=== PATIENT | male | born 1960 | race American Indian/Alaskan Native ===

== ENCOUNTER 2020-08-24 11:18 | Emergency (ER) | payer SELFPAY ==
[2020-08-24] MEDS ORDERED: ASPIRIN 325 MG TAB PO ONE (11:40)
[2020-08-24 13:02] LABS: Basophils # (Auto) 0.1 K/mm3 (0.0-0.1); Basophils % (Auto) 1.2 % (0.0-1.8); Eosinophils # (Auto) 0.2 K/mm3 (0.0-0.4); Eosinophils % (Auto) 3.2 % (0.0-4.3); Hematocrit 40.3 % (35.5-45.6); Hemoglobin 13.4 gm/dl (11.8-15.2); Lymphocytes # (Auto) 2.5 K/mm3 (1.2-5.4); Mean Corpuscular HGB Conc 33 % (32-34); Mean Corpuscular Volume 93 fl (84-94); Monocytes # (Auto) 0.3 K/mm3 (0.0-0.8); Monocytes % (Auto) 6.4 % (0.0-7.3); Platelet Count 235 K/mm3 (140-440); Red Blood Count 4.32 M/mm3 (3.65-5.03); Red Cell Distribution Width 13.4 % (13.2-15.2)
[2020-08-24 13:18] LABS: BUN/Creatinine Ratio 14; Blood Urea Nitrogen 18 mg/dL (9-20); Calcium 8.9 mg/dL (8.4-10.2); Hemolysis Index 12
--- NOTE | 2020-08-24 13:30 | XRay Report ---
CHEST PA AND LATERAL VIEWS INDICATION: Chest Pain. COMPARISON: None. FINDINGS: Support devices: None. Heart: Within normal limits. Lungs/Pleura: No acute pulmonary or pleural findings. IMPRESSION: 1. No acute findings. Signer Name: Brendan Bowling MD Signed: 08/24/2020 1:25 PM Workstation Name: [id number]
[2020-08-24] MEDS ORDERED: ASPIRIN 325 MG TAB ONE (15:48)
--- NOTE | 2020-08-24 16:44 | Emergency Department Report ---
HPI - General Chief Complaint: Chest Pain PUI?: No Time Seen by Provider: 08/24/20 16:15 - HPI HPI: Room 6 The patient is a 59-year-old male present with a chief complaint of chest pain. The patient states symptom began last night while at rest he states he developed a "hurt" pain in his left chest that was constant. The patient states the pain was still present this morning when he awakened and his spouse urged him to come to the emergency department. Patient denies shortness of breath, nausea/vomiting or diaphoresis with this pain. Patient denies pleurisy or cough. Patient states he had a normal cardiac catheterization in 2014. Patient currently denies chest pain and states he feels good ED Past Medical Hx - Past Medical History Previous Medical History?: Yes Hx Hypertension: Yes Hx Pulmonary Embolism: Yes (2009, February 2020) - Surgical History Past Surgical History?: No - Family History Family history: no significant - Social History Smoking Status: Current Some Day Smoker (Cigar) Substance Use Type: None (Denies illicit drug use), Alcohol (Occasional) ED Review of Systems ROS: Stated complaint: CHEST PAIN, KIDNEY PAIN Other details as noted in HPI Constitutional: denies: diaphoresis Respiratory: denies: shortness of breath Cardiovascular: chest pain Endocrine: no symptoms reported Gastrointestinal: denies: nausea, vomiting Physical Exam - Physical Exam Vital Signs: Vital Signs 08/24/20 08/24/20 08/24/20 11:40 15:46 16:00 Temperature 98.4 F Pulse Rate 55 L 42 L 46 L Respiratory 18 13 17 Rate Blood Pressure 158/98 161/93 Blood Pressure 161/97 [Right] O2 Sat by Pulse 97 98 99 Oximetry 08/24/20 16:30 Temperature Pulse Rate Respiratory Rate Blood Pressure 158/96 Blood Pressure [Right] O2 Sat by Pulse 100 Oximetry Physical Exam: GENERAL: The patient is well-developed well-nourished male lying on stretcher not appearing to be in acute distress. [] HEENT: Normocephalic. Atraumatic. Extraocular motions are intact. Patient has moist mucous membranes. NECK: Supple. Trachea midline CHEST/LUNGS: Clear to auscultation. There is no respiratory distress noted. HEART/CARDIOVASCULAR: Regular. There is no tachycardia. There is no gallop rub or murmur. ABDOMEN: Abdomen is soft, nontender. Patient has normal bowel sounds. There is no abdominal distention. SKIN: There is no rash. There is no edema. There is no diaphoresis. NEURO: The patient is awake, alert, and oriented. The patient is cooperative. The patient has normal speech MUSCULOSKELETAL: There is no evidence of acute injury. ED Course Vital Signs 08/24/20 08/24/20 08/24/20 11:40 15:46 16:00 Temperature 98.4 F Pulse Rate 55 L 42 L 46 L Respiratory 18 13 17 Rate Blood Pressure 158/98 161/93 Blood Pressure 161/97 [Right] O2 Sat by Pulse 97 98 99 Oximetry 08/24/20 16:30 Temperature Pulse Rate Respiratory Rate Blood Pressure 158/96 Blood Pressure [Right] O2 Sat by Pulse 100 Oximetry ED Medical Decision Making - Lab Data Result diagrams: 08/24/20 12:28 08/24/20 12:28 Laboratory Tests 08/24/20 08/24/20 08/24/20 12:28 12:28 15:30 WBC 5.1 RBC 4.32 Hgb 13.4 Hct 40.3 MCV 93 MCH 31 MCHC 33 RDW 13.4 Plt Count 235 Lymph % (Auto) 49.0 H [place] % (Auto) 6.4 Eos % (Auto) 3.2 Baso % (Auto) 1.2 Lymph # (Auto) 2.5 [place] # (Auto) 0.3 Eos # (Auto) 0.2 Baso # (Auto) 0.1 Seg Neutrophils % 40.2 Seg Neutrophils # 2.0 Sodium 140 Potassium 3.8 Chloride 104.3 Carbon Dioxide 28 Anion Gap 12 BUN 18 Creatinine 1.3 Estimated GFR 57 BUN/Creatinine Ratio 14 Glucose 86 Calcium 8.9 Troponin T < 0.010 < 0.010 08/24/20 17:14 WBC RBC Hgb Hct MCV MCH MCHC RDW Plt Count Lymph % (Auto) [place] % (Auto) Eos % (Auto) Baso % (Auto) Lymph # (Auto) [place] # (Auto) Eos # (Auto) Baso # (Auto) Seg Neutrophils % Seg Neutrophils # Sodium Potassium Chloride Carbon Dioxide Anion Gap BUN Creatinine Estimated GFR BUN/Creatinine Ratio Glucose Calcium Troponin T < 0.010 - EKG Data -: EKG Interpreted by Nm EKG shows normal: sinus rhythm Rate: bradycardia (50 bpm) - EKG Data When compared to previous EKG there are: previous EKG unavailable Interpretation: nonspecific ST-T wave zackary - Radiology Data Radiology results: report reviewed (Chest x-ray), image reviewed (Chest x-ray) interpreted by me: Chest x-ray-no focal infiltrates, no pneumothorax Findings [facility] [address] [place] [address] XRay Report Signed Patient: FLEX TORRES MR#: [id number] 8 : 1960 Acct:[id number] Age/Sex: 59 / M ADM Date: 08/24/20 Loc: ED Attending Dr: Ordering Physician: ED MD SUDHEER Date of Service: 08/24/20 Procedure(s): XR chest routine 2V Accession Number(s): [id number] cc: ED DOCMD Fluoro Time In Minutes: CHEST PA AND LATERAL VIEWS INDICATION: Chest Pain. COMPARISON: None. FINDINGS: Support devices: None. Heart: Within normal limits. Lungs/Pleura: No acute pulmonary or pleural findings. IMPRESSION: 1. No acute findings. Signer Name: Brendan Bowling MD Signed: 08/24/2020 1:25 PM Workstation Name: [id number] Transcribed By: NANCY Dictated By: Brendan Bowling MD Electronically Authenticated By: Brendan Bowling MD Signed Date/Time: 08/24/20 132 DD/ 1324 TD/TT: - Differential Diagnosis ACS, muscle strain, pericarditis, GERD Critical care attestation.: If time is entered above; I have spent that time in minutes in the direct care of this critically ill patient, excluding procedure time. ED Disposition Clinical Impression: Chest pain Disposition: DC-01 TO HOME OR SELFCARE Is pt being admited?: No Does the pt Need Aspirin: No Condition: Stable Instructions: Chest Pain (ED) Additional Instructions: You are to follow-up with [facility] for further evaluation. Return to the emergency department should you develop worsening symptoms, inability to tolerate food or liquids, high fever or any other rylie rns Referrals: PRIMARY CARE, [Primary Care Provider] - 3-5 Days Time of Disposition: 18:44 HEART Score - HEART Score History: Slightly suspicious EKG: Non-specific Age: 45-65 Risk factors: 1-2 risk factors Troponin: Troponin T < 0.010 ng/mL (0.00-0.029) 08/24/20 15:30 Troponin: < normal limit HEART Score: 3
[2020-08-24 18:34] VITALS: BP 165/108
== END 2020-08-24 19:02 | disposition home or self-care (01) ==
LOC: ED 11:18
DX: R07.89 Other chest pain (principal); I10 Essential (primary) hypertension; F17.200 Nicotine dependence, unspecified, uncomplicated
CPT/HCPCS: 36415; 71046; 80048; 84484; 85025; 93005

== ENCOUNTER 2020-09-28 08:10 | Emergency (ER) | payer SELFPAY ==
[2020-09-28] MEDS ORDERED: ASPIRIN 325 MG TAB PO ONE (08:27)
--- NOTE | 2020-09-28 09:06 | XRay Report ---
CHEST 1 VIEW INDICATION: Chest Pain. COMPARISON: 08/24/2020 FINDINGS: Support devices: None. Heart: Within normal limits. Lungs/Pleura: No acute air space or interstitial disease. Additional findings: None. IMPRESSION: No acute findings. Signer Name: Azeem Jhaveri Jr, MD Signed: 09/28/2020 9:01 AM Workstation Name: [id number]
[2020-09-28 09:10] LABS: Basophils # (Auto) 0.1 K/mm3 (0.0-0.1); Basophils % (Auto) 1.3 % (0.0-1.8); Eosinophils % (Auto) 0.2 % (0.0-4.3); Hematocrit 39.2 % (35.5-45.6); Hemoglobin 13.8 gm/dl (11.8-15.2); Lymphocytes # (Auto) 1.3 K/mm3 (1.2-5.4); Lymphocytes % (Auto) 25.6 % (13.4-35.0); Mean Corpuscular HGB Conc 35 % (32-34); Mean Corpuscular Volume 90 fl (84-94); Monocytes # (Auto) 0.2 K/mm3 (0.0-0.8); Monocytes % (Auto) 3.3 % (0.0-7.3); Platelet Count 238 K/mm3 (140-440); Red Blood Count 4.35 M/mm3 (3.65-5.03); Red Cell Distribution Width 13.9 % (13.2-15.2)
[2020-09-28 09:26] LABS: BUN/Creatinine Ratio 12; Blood Urea Nitrogen 15 mg/dL (9-20); Calcium 9.3 mg/dL (8.4-10.2); Hemolysis Index 4
[2020-09-28 09:36] LABS: INR 1.08 (0.87-1.13)
[2020-09-28 09:37] LABS: Partial Thromboplastin Time 26.1 Sec. (24.2-36.6)
[2020-09-28 09:45] LABS: Albumin 4.1 g/dL (3.9-5); Bilirubin,Direct 0.2 mg/dL (0-0.2)
--- NOTE | 2020-09-28 11:00 | Vascular Lab Report ---
DUPLEX DOPPLER LOWER EXTREMITY VEINS, RIGHT INDICATION / CLINICAL INFORMATION: Right leg swelling. History of PE. TECHNIQUE: Duplex doppler imaging was performed through the veins of the right lower extremity using venous comp ression and other maneuvers. COMPARISON: None available. FINDINGS: RIGHT COMMON FEMORAL VEIN: Negative. RIGHT FEMORAL VEIN: Negative. RIGHT POPLITEAL VEIN: Negative. RIGHT CALF VEINS: Negative. ADDITIONAL FINDINGS: None. IMPRESSION: 1. No sonographic evidence for DVT in the right lower extremity. Signer Name: John Pizarro MD Signed: 09/28/2020 10:55 AM Workstation Name: [id number]
[2020-09-28 11:12] LABS: Bilirubin,Urine NEG (Negative); Blood,Urine SM (Negative); Color,Urine Yellow (Yellow); Hyaline Casts,Urine 4 /LPF; Mucus,Urine 3+ /HPF
[2020-09-28 11:18] LABS: Amphetamine Screen,Urine Negative; Benzodiazepines Screen,Urine Negative; Cannabinoid Screen,Urine Negative; Methadone Screen,Urine Negative; Opiate Screen,Urine Negative
[2020-09-28 11:49] LABS: Cocaine Screen,Urine PRESUMPTIVE POSITIVE
[2020-09-28] MEDS ORDERED: POTASSIUM CHLORIDE ER 20 MEQ TAB PO ONE (12:21)
--- NOTE | 2020-09-28 12:24 | Emergency Department Report ---
ED Chest Pain HPI - General Chief Complaint: Chest Pain Stated Complaint: CHEST PAIN Time Seen by Provider: 09/28/20 08:48 Source: patient Mode of arrival: Stretcher Limitations: No Limitations - History of Present Illness Initial Comments: 59-year-old male patient complains of a vague left lateral chest pain that does not radiate. It is not associated with cough or shortness of breath. Patient states that he has history of pulmonary embolism. He is currently taking Xarelto. He is followed at [facility]. He has had a previous cardiac catheterization not followed by intervention approximately 3 years ago. He did not admit to 4 days ago. However, upon review of his urine tox screen he stated he used crack cocaine 4 days ago. MD Complaint: chest pain -: Gradual, hour(s) Onset: during rest Pain Location: left chest Pain Radiation: none Severity: moderate Severity scale (0 -10): 5 Quality: other (Poorly characterized aching) Consistency: now resolved Improves With: nothing Worsens With: nothing re: denies: nausea, vomting, diaphoresis, dyspnea, sense of impending doom Other Symptoms: denies: cough, fever, syncope Treatments Prior to Arrival: none - Related Data Previous Rx's Medication Instructions Recorded Last Taken Type traMADoL [Ultram] 50 mg PO Q6HR PRN #7 tablet 09/28/20 Unknown Rx Allergies Allergy/AdvReac Type Severity Reaction Status Date / Time No Known Allergies Allergy Unverified 08/24/20 11:38 Heart Score - HEART Score History: Slightly suspicious EKG: Non-specific Age: 45-65 Risk factors: 1-2 risk factors Troponin: < normal limit HEART Score: 3 - Critical Actions Critical Actions: 0-3 pts:0.9-1.7%risk of adverse cardiac event.Candidate for discharge ED Review of Systems ROS: Stated complaint: CHEST PAIN Other details as noted in HPI Constitutional: denies: chills, fever Eyes: denies: eye pain, eye discharge, vision change ENT: denies: ear pain, throat pain Respiratory: denies: cough, shortness of breath, wheezing Cardiovascular: chest pain. denies: palpitations Endocrine: no symptoms reported Gastrointestinal: denies: abdominal pain, nausea, diarrhea Genitourinary: denies: urgency, dysuria Musculoskeletal: other (Complains of right leg swelling). denies: back pain, joint swelling, arthralgia Skin: denies: rash, lesions Neurological: denies: headache, weakness, paresthesias Psychiatric: denies: anxiety, depression Hematological/Lymphatic: denies: easy bleeding, easy bruising ED Past Medical Hx - Past Medical History Previous Medical History?: Yes Hx Hypertension: Yes Hx Pulmonary Embolism: Yes (February 2020) Additional medical history: States compliant with Xarelto - Social History Smoking Status: Current Some Day Smoker - Medications Home Medications: Home Medications Medication Instructions Recorded Confirmed Last Taken Type traMADoL [Ultram] 50 mg PO Q6HR PRN #7 tablet 09/28/20 Unknown Rx ED Physical Exam - General Limitations: No Limitations General appearance: alert, in no apparent distress - Head Head exam: Present: atraumatic, normocephalic - Eye Eye exam: Present: normal appearance. Absent: scleral icterus - ENT ENT exam: Present: mucous membranes moist - Neck Neck exam: Present: normal inspection - Respiratory Respiratory exam: Present: normal lung sounds bilaterally. Absent: respiratory distress - Cardiovascular Cardiovascular Exam: Present: regular rate, normal rhythm. Absent: systolic murmur, diastolic murmur, rubs, gallop - GI/Abdominal GI/Abdominal exam: Present: soft, normal bowel sounds. Absent: distended, tenderness, guarding, rebound - Rectal Rectal exam: Present: deferred - Extremities Exam Extremities exam: Present: other (There was some edema of the right leg perhaps slight differential girth but no calf tenderness) - Back Exam Back exam: Present: normal inspection - Neurological Exam Neurological exam: Present: alert, oriented X3, CN II-XII intact. Absent: motor sensory deficit - Psychiatric Psychiatric exam: Present: normal affect, normal mood - Skin Skin exam: Present: warm, dry, intact, normal color. Absent: rash ED Course Vital Signs 09/28/20 09/28/20 09/28/20 08:41 08:42 08:45 Temperature 98.1 F Pulse Rate 99 H 63 65 Respiratory 18 13 16 Rate Blood Pressure 133/90 Blood Pressure 138/82 [Right] O2 Sat by Pulse 100 100 97 Oximetry 09/28/20 09/28/20 09/28/20 09:00 09:15 09:30 Temperature Pulse Rate 66 57 L 57 L Respiratory 14 16 16 Rate Blood Pressure 140/94 140/93 137/88 Blood Pressure [Right] O2 Sat by Pulse 97 96 95 Oximetry 09/28/20 09/28/20 09/28/20 09:45 10:00 10:37 Temperature Pulse Rate 57 L 58 L Respiratory 16 16 Rate Blood Pressure 136/89 146/86 146/86 Blood Pressure [Right] O2 Sat by Pulse 96 96 99 Oximetry 09/28/20 09/28/20 09/28/20 10:46 11:01 11:15 Temperature Pulse Rate Respiratory Rate Blood Pressure 142/90 150/94 157/92 Blood Pressure [Right] O2 Sat by Pulse 97 96 97 Oximetry 09/28/20 09/28/20 11:30 11:45 Temperature Pulse Rate Respiratory Rate Blood Pressure 148/90 148/90 Blood Pressure [Right] O2 Sat by Pulse 97 97 Oximetry - Reevaluation(s) Reevaluation #1: Doppler of the right leg was negative. Cardiac work-up was negative. Cocaine screen was positive. Slight rhabdo. Patient appropriate for outpatient management. He was counseled regarding the risk of cocaine abuse. 09/28/20 12:30 ED Medical Decision Making - Lab Data Result diagrams: 09/28/20 08:27 09/28/20 08:27 Laboratory Results - last 24 hr 09/28/20 09/28/20 09/28/20 08:27 08:27 08:27 WBC 5.2 RBC 4.35 Hgb 13.8 Hct 39.2 MCV 90 MCH 32 MCHC 35 H RDW 13.9 Plt Count 238 Lymph % (Auto) 25.6 [place] % (Auto) 3.3 Eos % (Auto) 0.2 Baso % (Auto) 1.3 Lymph # (Auto) 1.3 [place] # (Auto) 0.2 Eos # (Auto) 0.0 Baso # (Auto) 0.1 Seg Neutrophils % 69.6 Seg Neutrophils # 3.6 PT INR APTT Sodium 138 Potassium 3.4 L Chloride 103.4 Carbon Dioxide 24 Anion Gap 14 BUN 15 Creatinine 1.3 Estimated GFR > 60 BUN/Creatinine Ratio 12 Glucose 97 Calcium 9.3 Total Bilirubin 1.10 Direct Bilirubin 0.2 Indirect Bilirubin 0.9 AST 28 ALT 13 Alkaline Phosphatase 59 Total Creatine Kinase 692 H CK-MB (CK-2) 9.0 H CK-MB (CK-2) Rel Index 1.3 Troponin T < 0.010 NT-Pro-B Natriuret Pep 398.9 Total Protein 6.7 Albumin 4.1 Albumin/Globulin Ratio 1.6 Urine Color Urine Turbidity Urine pH Ur Specific [place] Urine Protein Urine Glucose (UA) Urine Ketones Urine Blood Urine Nitrite Urine Bilirubin Urine Urobilinogen Ur Leukocyte Esterase Urine WBC (Auto) Urine RBC (Auto) U Epithel Cells (Auto) Hyaline Casts Urine Mucus Urine Opiates Screen Urine Methadone Screen Ur Barbiturates Screen Ur Phencyclidine Scrn Ur Amphetamines Screen U Benzodiazepines Scrn Urine Cocaine Screen U Marijuana (THC) Screen Drugs of Abuse Note 09/28/20 09/28/20 09/28/20 08:49 10:55 10:55 WBC RBC Hgb Hct MCV MCH MCHC RDW Plt Count Lymph % (Auto) [place] % (Auto) Eos % (Auto) Baso % (Auto) Lymph # (Auto) [place] # (Auto) Eos # (Auto) Baso # (Auto) Seg Neutrophils % Seg Neutrophils # PT 13.9 INR 1.08 APTT 26.1 Sodium Potassium Chloride Carbon Dioxide Anion Gap BUN Creatinine Estimated GFR BUN/Creatinine Ratio Glucose Calcium Total Bilirubin Direct Bilirubin Indirect Bilirubin AST ALT Alkaline Phosphatase Total Creatine Kinase CK-MB (CK-2) CK-MB (CK-2) Rel Index Troponin T NT-Pro-B Natriuret Pep Total Protein Albumin Albumin/Globulin Ratio Urine Color Yellow Urine Turbidity Clear Urine pH 6.0 Ur Specific [place] 1.025 Urine Protein 30 mg/dl Urine Glucose (UA) Neg Urine Ketones 20 Urine Blood Sm Urine Nitrite Neg Urine Bilirubin Neg Urine Urobilinogen 2.0 Ur Leukocyte Esterase Neg Urine WBC (Auto) 4.0 Urine RBC (Auto) 8.0 U Epithel Cells (Auto) 1.0 Hyaline Casts 4 Urine Mucus 3+ Urine Opiates Screen Negative Urine Methadone Screen Negative Ur Barbiturates Screen Negative Ur Phencyclidine Scrn Negative Ur Amphetamines Screen Negative U Benzodiazepines Scrn Negative Urine Cocaine Screen Presumptive positive U Marijuana (THC) Screen Negative Drugs of Abuse Note Disclamer - EKG Data -: EKG Interpreted by Me EKG shows normal: sinus rhythm, axis, intervals, ST-T waves - EKG Data Interpretation: nonspecific ST-T wave zackary, LV[facility] - Radiology Data Chest x-ray and Doppler no acute findings Critical care attestation.: If time is entered above; I have spent that time in minutes in the direct care of this critically ill patient, excluding procedure time. ED Disposition Clinical Impression: Atypical chest pain, Cocaine abuse Disposition: DC-01 TO HOME OR SELFCARE Is pt being admited?: No Does the pt Need Aspirin: No Condition: Stable Instructions: Chest Pain (ED), Nonspecific Chest Pain, Adult, Substance Use Disorder Additional Instructions: Return to the emergency department any acute change or problem. Obviously do not abuse cocaine. Follow-up with the [facility]. Rx if needed for pain. Increase fluids Prescriptions: traMADoL [Ultram] 50 mg PO Q6HR PRN #7 tablet PRN Reason: Pain Referrals: PRIMARY CARE, [Primary Care Provider] - 3-5 Days Usual, [facility] [Other] - 3-[address] [facility] [Provider Group] - 2-3 Days Time of Disposition: 12:32
[2020-09-28 13:12] VITALS: BP 141/96
== END 2020-09-28 13:13 | disposition home or self-care (01) ==
LOC: ED 08:10
DX: R07.89 Other chest pain (principal); F14.10 Cocaine abuse, uncomplicated; I10 Essential (primary) hypertension; F17.200 Nicotine dependence, unspecified, uncomplicated
CPT/HCPCS: 36415; 71045; 80048; 80076; 80307; 81001; 82550; 82553; 83880; 84484; 85025; 85610; 85730; 93005